=== PATIENT | female | born 1995 ===

== ENCOUNTER 2016-10-29 19:52 | Emergency (ER) | payer OTHER ==
--- NOTE | 2016-10-29 20:12 | UC ---
Abdominal Pain Female HPI - HPI Summary HPI Summary: PT WOKE UP YESTERDAY MORNING WITH DULL, ACHY PERIUMBILICAL/RLQ PAIN. PT HAD SOME INTERMITTENT NAUSEA AND APPETITE HAS BEEN SOMEWHAT DECREASED. NO FEVER, DIARRHEA, VOMITING OR URINARY SX. ARRIVED HERE YESTERDAY FROM [facility] ([facility]) FOR A TRACK MEET AND RETURNS TOMORROW. TOOK SOME IBUPROFEN TODAY AND WAS ABLE TO PARTICIPATE IN TRACK TOURNAMENT WITHOUT DIFFICULTY. - History of Current Complaint Chief Complaint: UCAbdominalPain Stated Complaint: ABDOMINAL PAIN Time Seen by Provider: 10/29/16 20:04 Hx Obtained From: Patient Hx Last Menstrual Period: 10/11/16 Onset/Duration: Sudden Onset, Lasting Days, Still Present Timing: Constant Severity Initially: Mild Severity Currently: Moderate Pain Intensity: 4 Pain Scale Used: 0-10 Numeric Location: Discrete At: RLQ, Other - PERIUMBILICAL Radiates: No Character: Aching, Dull Aggravating Factor(s): Nothing Alleviating Factor(s): OTC Analgesics - IBUPROFEN Associated Signs and Symptoms: Positive: Decreased Appetite, Nausea. Negative: Diaphoresis, Fever, Cough, Chest Pain, Dizzy, Back Pain, Constipation, Blood in Stool, Urinary Symptoms, Vaginal Bleeding, Vaginal Discharge, Vomiting, Diarrhea Allergies/Adverse Reactions: Allergies Allergy/AdvReac Type Severity Reaction Status Date / Time Lidocaine Allergy Severe Anaphylatic Verified 10/29/16 20:01 Shock Procaine [From Novocain] Allergy Severe Anaphylatic Verified 10/29/16 20:01 Shock Home Medications: Home Medications Cyanocobalamin [Vitamin B 12] 10/29/16 [History] Ferrous Fumarate [Iron] 10/29/16 [History] Ibuprofen TAB* [Advil TAB*] 400 mg PO PRN 10/29/16 [History] PMH/Surg Hx/FS Hx/Imm Hx Previously Healthy: Yes - Surgical History Surgical History: None - Family History Known Family History: Negative: Hypertension, Diabetes - Social History Alcohol Use: None Substance Use Type: None Smoking Status (MU): Never Smoked Tobacco Review of Systems Constitutional: Negative Respiratory: Negative Cardiovascular: Negative Gastrointestinal: Abdominal Pain, Other - NAUSEA Genitourinary: Negative All Other Systems Reviewed And Are Negative: Yes Physical Exam Triage Information Reviewed: Yes Appearance: Well-Appearing, No Pain Distress, Well-Nourished Vital Signs: Initial Vital Signs Temp 97.8 F 10/29/16 19:56 Pulse 66 10/29/16 19:56 Resp 16 10/29/16 19:56 BP 136/73 10/29/16 19:56 Pulse Ox 100 10/29/16 19:56 Vital Signs Reviewed: Yes Eyes: Positive: Conjunctiva Clear ENT: Positive: Hearing grossly normal Respiratory Exam: Normal Cardiovascular Exam: Normal Abdomen Description: Positive: Soft. Negative: CVA Tenderness (R), CVA Tenderness (L), Distended, Guarding, Other: - MILDLY TTP RLQ. NO REBOUND, RIGIDITY OR GUARDING. NEG OBTURATOR AND PSOAS SIGNS Bowel Sounds: Positive: Present Musculoskeletal: Positive: No Edema Neurological: Positive: Alert Psychological: Positive: Age Appropriate Behavior Skin: Negative: rashes Diagnostics - Laboratory Diagnostic Studies Completed/Ordered: URINE HCG NEG. URINE DIP UNREMARKABLE Abd Pain Female Course/Dx - Differential Dx/Diagnosis Differential Diagnosis: Appendicitis, Irritable Bowel Syndrome, Other - GASTROENTERITIS Provider Diagnoses: ABDOMINAL PAIN, NOS Discharge - Discharge Plan Condition: Stable Disposition: HOME Patient Education Materials: Abdominal Pain (ED) Additional Instructions: RIGHT NOW YOUR SYMPTOMS ARE NOT INDICATIVE OF ANY SPECIFIC ABDOMINAL PATHOLOGY. RECOMMEND CAREFUL OBSERVATION. HYDRATE, REST, EASY DIET. TO ER WITHOUT FAIL IF SYMPTOMS WORSEN. FOLLOW-UP WITH YOUR PCP OR STUDENT HEALTH WHEN YOU RETURN TO [facility]. ABDOMINAL PAIN: There are many causes of abdominal pain. Pain can mean a serious problem requiring surgery (such as appendicitis), or an innocent problem which goes away on its own (such as a viral infection). Often, time must pass to determine the cause of pain. The physician does not feel that hospitalization is necessary, at present. Conditions may change, however, within the next 24 hours. Therefore, call the doctor or come back for re-examination if any problems occur, such as: 1) Pain which becomes more severe, steady, or becomes concentrated in one specific area. Also, pain which is more severe with movement or coughing. 2) Vomiting which persists or becomes more frequent. 3) Blood in the vomitus, urine, or bowel movements. Blood in the stool may have a tarry or black appearance. 4) Shaking chills or fever greater than 100 degrees F. 5) The abdomen becomes more distended or swollen. 6) Bowel movements cease. 7) Failure to improve as expected. OBSERVATION FOR APPENDICITIS: At this time, the abdominal pain does not seem to be appendicitis. Our next "test" will be passage of time. If you have early appendicitis, signs will appear to help us make the diagnosis. Most of the time, the pain goes away. In these cases, the pain is usually due to a virus in the lymph glands near the appendix, or due to an ovarian cyst or ovulation. Unless the pain is gone, you should come back for a recheck. This is usually done in 8 to 12 hours. Be sure you understand your follow-up instructions. GO TO THE ER IMMEDIATELY IF: (1) the pain becomes much more severe and sharply increases with movement or coughing, (2) vomiting becomes frequent, (3) there is blood in the vomit, urine, or bowel movements, (4) there are shaking chills or fever, or (5) the abdomen becomes more distended or swollen.
== END 2016-10-29 20:39 | disposition home or self-care (01) ==
LOC: UCEAST 19:52
DX: R10.33 Periumbilical pain (principal); R10.31 Right lower quadrant pain; Z32.02 Encounter for pregnancy test, result negative; Z88.4 Allergy status to anesthetic agent
CPT/HCPCS: 81002; 81025; 99201; G0463